=== PATIENT | female | born 1935 | race Caucasian/White ===

== ENCOUNTER 2020-01-01 09:42 | Emergency (ER) | payer MEDICARE, BC ==
[2020-01-01] MEDS ORDERED: Lorazepam 2 MG/ML VIAL ONE (09:48)
--- NOTE | 2020-01-01 11:01 | CT ---
CT Cervical Spine WO Con History: Fall. Trauma Comparison: None. Findings: The occipital condyles are intact. The odontoid process is intact. No acute fracture or mal alignment of the cervical spine. The transverse processes are intact. Spinous processes are intact. No acute traumatic facet joint wid ening. Impression: No acute fracture or malalignment of the cervical spine.
[2020-01-01] MEDS ORDERED: Lidocaine 1% w/Epinephrine 1:100K 20 ML VIAL ONE (11:02)
[2020-01-01 11:06] LABS: #Eosinphils 0.1 thou/uL (0.0-0.7); #Lymphocytes 1.2 thou/uL (1.20-3.40); #Monocytes 0.3 thou/uL (0.11-0.59); #Neutrophils 4.1 thou/uL (1.40-6.50); %Basophils 0.6 % (0.0-1.0); %Eosinophils 1.7 % (0.0-10.0); %Lymphocytes 20.2 % (21.0-51.0); %Monocytes 5.5 % (0.0-10.0); %Neutrophils 72.1 % (42.0-75.0); Hemoglobin 13.2 g/dL (12.0-16.0); Mean Corpuscular HGB CONC 32.7 g/dL (32.0-36.0); Mean Corpuscular Volume 85.4 fL (78.0-98.0); Platelet Count 206 thou/uL (130-400); RBC Distribution Width 11.9 % (11.5-14.5); White Blood Cell (WBC) Count 5.7 thou/uL (4.8-10.8)
[2020-01-01 11:07] LABS: PTT 26.4 sec (22.9-36.1); Prothrombin Time 13.4 sec (12.0-14.7)
[2020-01-01] MEDS ORDERED: Boostrix 0.5 ML VIAL ONE (11:13)
[2020-01-01 11:33] LABS: ALT (SGPT) 17 U/L (8-55); AST (SGOT) 34 U/L (5-34); Albumin 3.9 g/dL (3.4-4.8); Alkaline Phosphatase 66 U/L (40-110); Anion Gap 15 mmol/L (10-20); BUN (Urea Nitrogen) 12 mg/dL (9.8-20.1); Bilirubin, Total 0.7 mg/dL (0.2-1.2); Calc. Creatinine Clearance 0 mL/min (70-130); Carbon Dioxide 22 mmol/L (23-31); Chloride 99 mmol/L (98-107); Estimated GFR-MDRD 70; Globulin 3.5 g/dL (2.4-3.5); Glucose 204 mg/dL (83-110); Potassium 4.2 mmol/L (3.5-5.1); Protein, Total 7.4 g/dL (6.0-8.3); Sodium 132 mmol/L (136-145)
--- NOTE | 2020-01-01 12:05 | CT ---
CT HEAD WITHOUT CONTRAST: Date: 01/01/2020 INDICATION: Unwitnessed fall with mental status change. Head injury with scalp laceration. No comparison. FINDINGS: Moderate cortical atrophy is noted. Moderate chronic ischemic white matter change is noted. There is no evidence of intracranial hemorrhage. Scalp edema over the right frontal lobe at the site of lacera tion. No evidence of skull fracture. Paranasal sinuses and mastoids are clear. IMPRESSION: No acute intracranial process. POS: AH
== END 2020-01-01 13:36 | disposition home or self-care (01) ==
LOC: ERS 09:42
DX: S01.81XA Laceration without foreign body of other part of head, initial encounter (principal); S40.811A Abrasion of right upper arm, initial encounter; I48.91 Unspecified atrial fibrillation; E11.9 Type 2 diabetes mellitus without complications; E78.5 Hyperlipidemia, unspecified; F41.9 Anxiety disorder, unspecified; Z87.891 Personal history of nicotine dependence; Z79.82 Long term (current) use of aspirin; Z79.4 Long term (current) use of insulin; Z79.899 Other long term (current) drug therapy; W18.30XA Fall on same level, unspecified, initial encounter
CPT/HCPCS: 12011; 36416; 51701; 70450; 72125; 80053; 84484; 85025; 85610; 85730; 90471; 90715; 93005; 94760; 96372; J2060